=== PATIENT | male | born 1940 | race Caucasian/White ===

== ENCOUNTER 2018-10-31 22:23 | Emergency (ER) | payer MEDICARE ==
[~2018-10-31] VITALS: Ht 177.8 cm; Wt 73.4 kg
[2018-10-31 22:26] VITALS: BP 134/86
--- NOTE | 2018-10-31 22:54 | NUR ---
Patient/Caregiver given discharge instructions and they have confirmed that they understand the instructions. Patient ambulatory with steady gait.
--- NOTE | 2018-10-31 22:54 | NUR ---
PT HERE FOR 1ST DEGREE SUNBURN. PT HAD CALAZIME CREAM APPLIED AND GIVEN SILICONE CREAM AND CALZIME CREAM TO HELP HEAL SKIN AT HOME. PT ASKED TO PURCHASE [employer].
== END 2018-10-31 22:56 | disposition home or self-care (01) ==
LOC: ED 22:40
DX: L55.0 Sunburn of first degree (principal); Z85.828 Personal history of other malignant neoplasm of skin
CPT/HCPCS: 99281; 99282